=== PATIENT | male | born 1945 | race Caucasian/White ===

== ENCOUNTER 2017-03-30 23:50 | Inpatient (IN) | payer OTHER, MEDICAID ==
[~2017-03-30] VITALS: Ht 182.9 cm; Wt 108.9 kg
[~2017-03-30 23:50] MED LIST: ALDACTONE50 MG PO; AMARYL4 MG PO; ATIVAN1 MG PO; BACTRIM DS TAB1 EACH PO; BENADRYL25 MG PO; CIPRO250 M1 PO; CIPROFLOXACIN750 MG PO; COLACE100 MG PO; FLEXERIL PO; HYDRALAZINE 2525 MG PO; HYDROCODONE-AP1 EAC6 PO; LASIX 20 MG TAB20 MG PO; LASIX 40 MG TAB40 M2 PO; LEVAQUIN 500 M500 MG PO; LEVEMIR SQ; LEVEMIR SUBQ; LISINOPRIL20 MG PO; LOPRESSOR100 M1 PO; LOVASTATIN 20 M20 MG PO; METFORMIN HCL500 MG PO; NEURONTIN 300300 M1 PO; NEURONTIN600 MG PO; NORCO 5-325 TA1 EAC1 PO; NORCO 5-325 TA1 EACH PO; NORVASC10 MG PO; NOVOLOG100 UNIT/1 PO; NOVOLOG100 UNIT/1 SUBQ; NYAMYC15 GM TOP; OMEPRAZOLE40 MG PO; OXECTA5 MG PO; OXYCODONE HCL 55 MG PO; OXYCODONE HCL15 MG PO; PERCOCET 5-3251 EACH PO; PERCOCET PO; TOPROL XL100 MG PO; ULTRAM 50MG TAB50 MG PO; VALIUM5 MG PO; VANCOMYCIN1 GM/250 M IV; VENTOLIN HFA 1818 GM INH; XARELTO15 MG PO; ZOFRAN ODT4 MG PO; ZYVOX600 MG PO
[2017-03-30 23:52] VITALS: BP 158/101
[2017-03-31] MEDS ORDERED: HUMULIN 70100 UNIT/3 SUBQ (00:09)
[2017-03-31 00:23] LABS: ABSOLUTE EOSINOPHILS 0.1 thou/uL (0.0-0.7); ABSOLUTE LYMPHOCYTES 1.3 thou/uL (0.8-5.3); ABSOLUTE MONOCYTES 0.8 thou/uL (0.0-1.2); ABSOLUTE NEUTROPHILS 5.8 thou/uL (1.6-8.1); BASOPHILS 0.3 %; EOSINOPHILS 0.8 %; HEMATOCRIT 31.9 % (42.0-52.0); MCHC 31.5 g/dL (28.0-37.0); MONOCYTES 9.7 %; MPV 8.4 fl. (7.2-11.1); NUCLEATED RBCS 0 /100WBC; PLATELET COUNT* 477 thou/uL (150-400); POLYS 73.2 %; RBC 4.37 mil/uL (4.50-6.00); RDW-CV 19.1 % (10.5-14.5); WBC 7.9 thou/uL (4.0-11.0)
[2017-03-31 00:31] LABS: CREATININE 0.9 mg/dL (0.6-1.3); POTASSIUM 3.8 mmol/L (3.5-5.1)
[2017-03-31 00:35] LABS: ALBUMIN 2.7 g/dL (3.4-5.0); TOTAL BILIRUBIN 0.2 mg/dL (<0.1-1.0); TOTAL PROTEIN 8.1 g/dL (6.4-8.2)
[2017-03-31 01:28] LABS: URINE BILIRUBIN NEGATIVE (Negative); URINE BLOOD NEGATIVE (Negative); URINE CLARITY CLEAR; URINE COLOR YELLOW; URINE GLUCOSE-RANDOM TRACE (Negative); URINE KETONES NEGATIVE (Negative); URINE LEUKOCYTES-REFLEX NEGATIVE (Negative); URINE NITRITE-REFLEX NEGATIVE (Negative); URINE PROTEIN TRACE (Negative); URINE SPECIFIC GRAVITY 1.015 (1.005-1.030); URINE UROBILINOGEN 0.2 E.U./dl (0.2-1.0)
[2017-03-31 02:58] VITALS: BP 165/88
[2017-03-31 03:15] VITALS: BP 141/80
[2017-03-31 08:00] VITALS: BP 147/96
[2017-03-31 13:23] VITALS: BP 150/81
[2017-03-31 15:53] VITALS: BP 143/77
[2017-03-31 22:00] VITALS: BP 140/79
[2017-04-01 07:33] LABS: HEMATOCRIT 30.5 % (42.0-52.0); HEMOGLOBIN 9.6 gm/dL (14.0-18.0); MCH 23.3 pg (26.0-34.0); MCHC 31.6 g/dL (28.0-37.0); MCV 73.5 fL (80.0-100.0); MPV 7.8 fl. (7.2-11.1); RBC 4.14 mil/uL (4.50-6.00); RDW-CV 19.4 % (10.5-14.5); WBC 8.2 thou/uL (4.0-11.0)
[2017-04-01 07:44] LABS: CALCIUM 8.8 mg/dL (8.5-10.1); CREATININE 0.9 mg/dL (0.6-1.3); MAGNESIUM 1.7 mg/dL (1.8-2.4); POTASSIUM 4.2 mmol/L (3.5-5.1)
[2017-04-01 08:15] VITALS: BP 124/55
--- NOTE | 2017-04-01 09:05 | CON ---
[facility] [address] [place] [address] CONSULTATION Name: SANTANA GONZALEZ Room: [address] IN M.R.#: [id number] Admission: 03/31/17 Attend Phys: Ebenezer Alexander, Discharge: Date of : 49 Report #: [id number] THIS REPORT FOR: //name// CC: Tahir Luis DO [facility] physician/PCP Ebenezer Alexander DATE OF SERVICE: 03/31/2017 PULMONARY CONSULTATION PATIENT LOCATION: Room 316. PULMONARY PHYSICIAN: Jordon Chavez M.D. ATTENDING PHYSICIAN Ebenezer Alexander M.D. INDICATION FOR CONSULTATION: Right lower lobe lung mass versus infiltrate. Previous abnormal biopsy at [facility]. HISTORY OF PRESENT ILLNESS: The patient is a 71-year-old male, lifelong nonsmoker, who presented to the Emergency Room here complaining of shortness of breath. He had right-sided abdominal pain. He has been tolerating the diet, but he states his last BM was 2 days ago. There may have been some mild constipation. The patient initially told me he thought he had mesothelioma diagnosed on his laparoscopic cholecystectomy by Dr. Luis. It appears that his gallbladder was normal and okay. I do not have the path reports. Our group did see him at [facility] for a couple of days again because of his history and he complained of increasing abdominal pain while he was at [facility]. I think that he was discharged home in the first week in March. I do not have his records in front of me here yet. His abdomen is soft at this time. He has good bowel sounds and is passing flatus. He is eating a diet. He was exposed to what he thinks was insulation when he worked at the [employer]. 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 His weight has been stable. No hemoptysis. Mostly abdominal pain, right upper quadrant has been his diagnosis and major complaint. PAST MEDICAL HISTORY: He has a history of hypertension and diabetes. Also, hyperlipidemia and nul-tquvrdb-uhzkhfjym diabetes mellitus, type 2. He does have past cancer history of melanoma and prostate cancer. PAST SURGICAL HISTORY: Includes cholecystectomy. OUTPATIENT MEDICATIONS: Again were multiple, including Lasix 20 mg daily, metoprolol 100 mg daily, glimepiride 4 mg once daily, lisinopril 20 mg daily, metformin 1000 mg b.i.d., lovastatin 20 mg daily, gabapentin [address] [place] [id number] CONSULTATION Name: SANTANA GONZALEZ Room: [address]#: [id number] Admission: 03/31/17 Attend Phys: Ebenezer Alexander, Discharge: Date of : 49 Report #: [id number] sliding scale insulin. FAMILY HISTORY: Noncontributory. SOCIAL HISTORY: The patient lives on his own. 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 He was never in the service and he had some insulation and did some works around pipes while he was at the [employer]. He did this in the mid 60s up through the 90s, I believe. ALLERGIES: HE HAS ALLERGIES OR INTOLERANCE TO CORTICOSTEROIDS, WHICH GIVES HIM NAUSEA; PENICILLINS AND CODEINE. REVIEW OF SYSTEMS: A 14-point review of systems otherwise was negative. There is no weight loss, chest pain or hemoptysis. PHYSICAL EXAMINATION: GENERAL: Today, he is a pleasant 71-year-old male who is in no acute distress. His major complaint is of right upper quadrant pain, but states he is comfortable at this time. He is lying in the bed quietly. VITAL SIGNS: His blood pressure is 143/77, his heart rate is 72, respirations 16, temperature is 36.4 degrees and room air sats 95%. He is 6 feet 1 inches tall, weight 109 kilograms or 230 pounds and BMI is 32. HEENT: Unremarkable. Teeth are in fair repair. NECK: Supple without nodes. CHEST: Shows a few rhonchi in the right lower lobe. Left chest is clear. CARDIOVASCULAR: Regular rate and rhythm, without murmur, gallop or rub. Heart rate 72. ABDOMEN: Quite soft. There are 4 ports noted, which are well healed. It is flat, it is soft. He has good bowel sounds, without any rebound tenderness. EXTREMITIES: Without cyanosis, clubbing or edema. NEUROLOGIC: Grossly intact. LABORATORY DATA: Hemoglobin is 10, white count 7900 and platelets are 477,000. Normal differential. Sodium is 136, potassium is 3.8, BUN is 13, creatinine 0.9 and glucose 214. Alkaline phosphatase is 58 and albumin is 2.7. Chest x-ray shows a 3 x 5 cm right lower lobe infiltrate versus mass. When they imaged this on his CT of the abdomen, the lower cuts, I think it is more than infiltrate; it is lateral. There may be some pleural thickening and may be adherent to the right side of his heart. There is some pleural thickening on the right, but I do not see calcified pleural thickening at least on the lower cuts of the CT abdomen; nothing on the left side. Again, this may be amenable to CT biopsy, but let us wait for the CT of the chest, which is ordered for Saturday. I do not have the records from [facility] either at this time. IMPRESSION: [facility] [address] [place] [address] CONSULTATION Name: SANTANA GONZALEZ Room: [facility]- ADM IN M.R.#: [id number] Admission: 03/31/17 Attend Phys: Ebenezer Alexander, Discharge: Date of : 49 Report #: [id number] 1. Possible right lung mass versus infiltrate, previous laparoscopic cholecystectomy at [facility]. 2. Abdominal pain. PLAN: Await CT chest and see what the infiltrate or mass looks like and see if we can do a CT-guided needle biopsy. Metastatic melanoma may be another consideration. Wait and see what the pathology and results show from [facility]. I am going to talk with Dr. Luis about that also. In the meantime, pain relief and symptomatic relief for his constipation. He does not have any COPD, so hopefully his pulmonary status will remain stable from that standpoint. Thanks again for allowing us to participate in this man's care. We will follow up along with you while he is in the hospital and await the old records from [facility]. <ELECTRONICALLY SIGNED> By: Sharee Henderson MD 04/01/17 0905 1849 0006Ajaycee Chavez MD /nt
[2017-04-01 16:25] VITALS: BP 146/92
[2017-04-01 20:20] VITALS: BP 135/87
[2017-04-02 08:15] VITALS: BP 150/89
[2017-04-02 16:00] VITALS: BP 159/88
[2017-04-03 07:35] VITALS: BP 149/90
[2017-04-03 16:30] VITALS: BP 137/81
[2017-04-03 20:30] VITALS: BP 125/87
[2017-04-04 08:00] VITALS: BP 137/86
[2017-04-04 16:00] VITALS: BP 103/70
[2017-04-04 20:00] VITALS: BP 131/76
[2017-04-05 07:35] VITALS: BP 108/73
[2017-04-05] MEDS ORDERED: OXYCODONE HCL10 MG PO (11:28)
[2017-04-05] MEDS ORDERED: MS CONTIN30 MG PO (11:28)
[2017-04-05 11:56] VITALS: BP 108/73
== END 2017-04-05 16:00 | disposition other institution (70) | DRG 389 ==
LOC: M.ERS 23:50 → M.TBA-ER 03-31 02:16 → M.3W 03-31 02:16
PROVIDERS: Personal Emergency Response Attendant; ADMIT Family Medicine
DX: K56.7 Ileus, unspecified (principal); R71.0 Precipitous drop in hematocrit; E11.9 Type 2 diabetes mellitus without complications; I10 Essential (primary) hypertension; E88.09 Other disorders of plasma-protein metabolism, not elsewhere classified; D50.9 Iron deficiency anemia, unspecified; E66.9 Obesity, unspecified; Z89.431 Acquired absence of right foot; Z85.47 Personal history of malignant neoplasm of testis; Z85.820 Personal history of malignant melanoma of skin; Z79.84 Long term (current) use of oral hypoglycemic drugs; Z79.4 Long term (current) use of insulin; Z88.5 Allergy status to narcotic agent; Z88.8 Allergy status to other drugs, medicaments and biological substances; Z88.0 Allergy status to penicillin; Z87.891 Personal history of nicotine dependence; Z90.49 Acquired absence of other specified parts of digestive tract; Z68.32 Body mass index [BMI] 32.0-32.9, adult

== ENCOUNTER 2017-08-23 11:39 | Inpatient (IN) | payer OTHER ==
[~2017-08-23] VITALS: Ht 185.4 cm; Wt 95.7 kg
[~2017-08-23 11:39] MED LIST changes: +HUMULIN 70100 UNIT/3 SUBQ; +MS CONTIN30 MG PO; +OXYCODONE HCL10 MG PO
[2017-08-23 11:42] VITALS: BP 148/98
[2017-08-23 12:18] LABS: ABSOLUTE EOSINOPHILS 0.1 thou/uL (0.0-0.7); ABSOLUTE LYMPHOCYTES 0.8 thou/uL (0.8-5.3); ABSOLUTE MONOCYTES 0.5 thou/uL (0.0-1.2); ABSOLUTE NEUTROPHILS 4.6 thou/uL (1.6-8.1); BASOPHILS 0.8 %; EOSINOPHILS 2.1 %; HEMATOCRIT 28.7 % (42.0-52.0); HEMOGLOBIN 9.3 gm/dL (14.0-18.0); LYMPHOCYTES 13.3 %; MCH 25.5 pg (26.0-34.0); MCHC 32.2 g/dL (28.0-37.0); MCV 79.2 fL (80.0-100.0); MONOCYTES 7.9 %; MPV 7.8 fl. (7.2-11.1); NUCLEATED RBCS 0 /100WBC; PLATELET COUNT* 352 thou/uL (150-400); POLYS 75.9 %; RBC 3.62 mil/uL (4.50-6.00); RDW-CV 18.8 % (10.5-14.5); WBC 6.1 thou/uL (4.0-11.0)
[2017-08-23 12:27] LABS: ANION GAP 9 mmol/L (7-16); BUN 17 mg/dL (7-18); CALCIUM 8.6 mg/dL (8.5-10.1); CHLORIDE 96 mmol/L (98-107); CO2 25 mmol/L (21-32); CREATININE 0.9 mg/dL (0.6-1.3); GLUCOSE 348 mg/dL (70-99); INR 1.1; POTASSIUM 3.5 mmol/L (3.5-5.1); PROTIME 10.5 Seconds (9.20-11.50); SODIUM 130 mmol/L (136-145)
[2017-08-23 12:37] LABS: ALKALINE PHOSPHATASE 98 U/L (46-116); LIPASE 99 U/L (73-393); MAGNESIUM 1.3 mg/dL (1.8-2.4); NT-PRO BRAIN NAT PEPTIDE 228 pg/mL (<300); SGOT 14 U/L (15-37); SGPT 14 U/L (30-65); TOTAL BILIRUBIN 0.2 mg/dL (<0.1-1.0); TOTAL PROTEIN 7.9 g/dL (6.4-8.2); TROPONIN-I LEVEL <0.06 ng/mL (<0.06)
--- NOTE | 2017-08-23 12:40 | NUR ---
ASSUMMED CARE OF PATIENT COMPLAINS OF CP X 2 HOURS THAT RADIATES INTO HIS BACK +DYPSNEA DENIES N/V DENIES DIAPHORESIS STATES PAIN DOES RADIATE INTO HIS LEFT ARM DENIES FEVER COUGH OR FLU LIKE SYMPTOMS. PATIENT WAS GIVEN MORPHINE BUT STATES DILAUDID WORKS MUCH BETTER FOR HIS DISCOMFORT.
--- NOTE | 2017-08-23 13:20 | NUR ---
PATIENT RETURNED FROM RADIOLOGY
[2017-08-23 16:15] VITALS: BP 147/89
--- NOTE | 2017-08-23 19:01 | NUR ---
RECEIVED PT FROM ER. PT C/O OF CHEST PAIN 01/22 AND REPORTS PAIN HAS BEEN OCCURING FOR 3 WEEKS. AFTER REPORTING CHEST PAIN, PT ASKING TO EAT MEAL AND ASKING HOW TO WORK TV. ADMISSION ASSESSMENT COMPLETE. PT MISSING ALL TOES ON RIGHT FOOT. PT AMBULATES WITH CANE. PT DENIES FALLS IN PAST 3 MONTHS. PT LIVES HOME ALONE. AWARE OF CHEST PAIN. RECEIVED ORDER FOR PAIN MEDICAITON. NO EKG NEEDED AT THIS TIME.
--- NOTE | 2017-08-23 19:44 | NUR ---
MAG 1.3 DR PAGED AND ASKED FOR ELECTROLYTE PROTOCOL. BLOOD SUGAR [address] TO RESUME HOME INSULIN. AWAITING ORDERS.
[2017-08-23 20:00] VITALS: BP 139/92
[2017-08-24] VITALS (7 sets, daily range): BP systolic 113–163; BP diastolic 87–101
--- NOTE | 2017-08-24 05:27 | NUR ---
ASSUMED PT CARE AT 19:15, REPORT RECEIVED FORM NURSE. PT IS ALERT AWAKE ORIENTED X 4. VITALS SIGNS WITHIN NORMAL LIMIT. SINUS TACHY ON THE MONITOR.LUNG SOUNDS ARE CLEAR. STAYED IN BED MOST OF THE NIGHT. ASSESSMENT PERFORMED REFER TO CHART. PT COMPLAIN OF PAIN LEVEL OF 10 INTHE LOWER MIDDLE BACK. SKINI IS INTACT. LEFT CHEST PORT IS PATENT. HYDROMORPHONE ADMINISTERED SCHEDULED. PT THEN GETS ANOTHER DOSE OF HYDROMORPHONE 4 HOURS AFTER AND STATED THAT PAIN GOT DOWN TO LEVEL 6. BLOOD SUGAR IS 466 AT 2100. INSULIN WAS ADMINISTERED ORDERED. PT ASKED FOR SNACK MULTIPLE TIMES DURINGHTE SHIFT. BLOOD SUGAR RECHECKED BEFORE SNACK ADMINISTRATION. LEVEL OF 117 THE LAST TIME. AND SNACK WAS GIVEN. PT TOLORATED WELL. NEW ORDER FOR HIGH DOSE SLIDING SCALE ORDERED AND ENTERED ON COMPUTER. PT URINATES IN THE URINAL PLACED AT BEDSIDE. LABS DRAW FROM LEFT CHEST PORT.
--- NOTE | 2017-08-24 13:06 | EKG ---
[place] [address] ELECTROCARDIOGRAM REPORT Name: SANTANA GONZALEZ Room: [address] IN .R.#: [id number] Admission: 08/23/17 Attend Phys: Parth Goodwin Discharge: Date of : 49 Report #: [id number] THIS REPORT FOR: //name// [facility] ED Test Date: 2017-08-23 Test Time: 12:05:40 Pat Name: SANTANA GONZALEZ Department: Room: Gender: M Armature Straightener: [facility] : 1945 Requested By: Yves Multani Order Number: [id number] MD: Bladimir Santos Measurements Intervals [place] Rate: 99 P: 19 MT: 201 QRS: -60 QRSD: 113 T: 56 QT: 364 QTc: 468 Interpretive Statements Sinus rhythm Left anterior fascicular block Abnormal R-wave progression, early transition ST elevation suggests acute pericarditis Compared to ECG 06/15/2016 15:47:08 Left anterior fascicular block now present Atrial premature complex(es) no longer present First degree AV block no longer present Left ventricular hypertrophy no longer present ST (T wave) deviation still present Electronically Signed On 08-24-2017 13:06:30 CDT by Bladimir Santos [email or web address] <ELECTRONICALLY SIGNED> By: Bladimir Santos MD, [facility] 08/24/17 1306 1205 1205 Bladimir Santos MD, [facility] /EPI
--- NOTE | 2017-08-24 13:06 | EKG ---
[place] [address] ELECTROCARDIOGRAM REPORT Name: SANTANA GONZALEZ Room: [address] IN .R.#: [id number] Admission: 08/23/17 Attend Phys: Parth Goodwin Discharge: Date of : 49 Report #: [id number] THIS REPORT FOR: //name// [facility] ED Test Date: 2017-08-23 Test Time: 11:43:27 Pat Name: SANTANA GONZALEZ Department: Room: Gender: M Bilingual Teacher Assistant: [facility] : 1945 Requested By: Yves Multani Order Number: [id number] MD: Bladimir Santos Measurements Intervals [place] Rate: 108 P: 9 CO: 198 QRS: -56 QRSD: 111 T: 74 QT: 343 QTc: 460 Interpretive Statements Sinus tachycardia Left anterior fascicular block Abnormal R-wave progression, early transition ST elevation, consider inferior injury Compared to ECG 06/15/2016 15:47:08 Left anterior fascicular block now present Myocardial infarct finding now present Sinus rhythm no longer present Atrial premature complex(es) no longer present First degree AV block no longer present Left ventricular hypertrophy no longer present ST (T wave) deviation still present Electronically Signed On 08-24-2017 13:06:25 CDT by Bladimir Santos [email or web address] <ELECTRONICALLY SIGNED> By: Bladimir Santos MD, [facility] 08/24/17 1306 1143 1143 Bladimir Santos MD, [facility] /EPI
--- NOTE | 2017-08-24 14:02 | NUR ---
Pt is A&O. States that he resides at home alone. Pt has a hx of residing at [facility], but stated that he stayed a few months and is now back living at home. Pt states being independent with ADLs. Pt has a walke and cane that he can use, Pt is wanting a wc. PT ordered to eval for wc. Supportive family and friends that assist as needed. Hx of [facility]. Following for dc needs.
--- NOTE | 2017-08-24 14:29 | NUR ---
PT CALLED OUT MULTIPLE TIMES IN THE LAST 30 MINUTES REGARDING PAIN, PT NOT ABLE TO HAVE PRN DILAUDID UNTIL 1506 PER CURRENT ORDER. SPOKE WITH DR CHILDS, CONSULTS FOR PULM AND HEMO ORDERED. PT STILL CALLING OUT IN PAIN. SPOKE WITH DR CHILDS AGAIN. ORDER TO CHANGE DILAUDID TO Q2 PRN. DILAUDID GIVEN
--- NOTE | 2017-08-24 15:07 | NUR ---
Juma from [facility] coming to meet with Pt today, per Pt's request. Spoke with , order for hospice eval and tx obtained.
[2017-08-24 15:23] LABS: CALCIUM 8.1 mg/dL (8.5-10.1); CREATININE 0.8 mg/dL (0.6-1.3); MAGNESIUM 1.8 mg/dL (1.8-2.4); POTASSIUM 4.2 mmol/L (3.5-5.1)
--- NOTE | 2017-08-24 15:51 | NUR ---
PT STATES HE HAS TAKE CELEBREX BEFORE AND IT "DOESN'T DO SHIT FOR HIM AND IT MADE ME SICK." DISCUSSED WITH PT ABOUT WHY PHYSICIAN ORDERED MEDICATION AND THE COMBINATION OF PAIN MEDICATION THERAPIES. PT AGREES TO TAKE TRY IT. CELEBREX ADMINISTERED.
--- NOTE | 2017-08-24 17:51 | NUR ---
HOSPICE REFERRAL PERSON CAME TO SPEAK WITH PT. PT DENIED TO TALK TO HER. WHEN ASKED WHY HE REFUSED TO TALK TO HOSPICE, HE TOLD THIS RN, "I DON'T FEEL GOOD." PT STATES HE WILL CALL THEM TOMORROW.
--- NOTE | 2017-08-25 00:42 | NUR ---
ASSUMED PT CARE AT 19:15, REPORT RECEIVED FROM NURSE. PT IS ALERT, AWAKE, ORIENTED X 4. VITAL SIGNS ARE WITHIN NORMAL LIMIT. ASSESSMENT PERFORMED REFER TO CHARTING. PT COMPLAINS OF PAIN LEVEL OF 10 IN THE LOWER BACK AREA. PAIN TREATED WITH DILAUDID AT 20:50. PT REFUSES ANY BATH OR SHOWER, SAYS HE WILL TAKE A SHOWER TOMORROW. SINUS TACHY ON THE MONITOR. HEART RATE IS MAINTAINED IN THE LOW 100S. O2 SATURATION IS 94 ON RA. DRESSING OF THE RIGHT CHEST WAS CHANGED. VANCO IS RUNNING AT MIDNIGHT ORDERED. ANOTHER ODESE OF DILAUDID WAS ADMINISTERED PT COMPLAINS OF PAIN AGAIN. CURRENTLY IN BED LAYING DOWN IN BED. WILL CONTINUE TO MONITOR
[2017-08-25 03:42] VITALS: BP 140/78
[2017-08-25 04:28] LABS: HEMATOCRIT 27.7 % (42.0-52.0); HEMOGLOBIN 9.1 gm/dL (14.0-18.0); MCH 26.1 pg (26.0-34.0); MCHC 32.8 g/dL (28.0-37.0); MCV 79.5 fL (80.0-100.0); MPV 7.9 fl. (7.2-11.1); NUCLEATED RBCS 0 /100WBC; PLATELET COUNT* 294 thou/uL (150-400); RBC 3.48 mil/uL (4.50-6.00); RDW-CV 18.4 % (10.5-14.5)
[2017-08-25 04:43] LABS: ALBUMIN 1.8 g/dL (3.4-5.0); CALCIUM 8.3 mg/dL (8.5-10.1); CREATININE 0.8 mg/dL (0.6-1.3); MAGNESIUM 1.4 mg/dL (1.8-2.4); POTASSIUM 3.9 mmol/L (3.5-5.1); TOTAL BILIRUBIN 0.3 mg/dL (<0.1-1.0); TOTAL PROTEIN 7.4 g/dL (6.4-8.2)
[2017-08-25 05:32] LABS: ABSOLUTE EOSINOPHILS 0.1 thou/uL (0.0-0.7); ABSOLUTE LYMPHOCYTES 0.7 thou/uL (0.8-5.3); ABSOLUTE MONOCYTES 0.4 thou/uL (0.0-1.2); ABSOLUTE NEUTROPHILS 8.8 thou/uL (1.6-8.1); ANISOCYTOSIS 1+; PLATELET ESTIMATE ADEQUATE; TOXIC GRANULATION 1+
[2017-08-25 13:16] VITALS: BP 138/95
[2017-08-25 17:28] VITALS: BP 141/82
[2017-08-25 18:50] VITALS: BP 141/82
[2017-08-25] MEDS ORDERED: OXYCODONE HCL 55 MG PO (18:55)
[2017-08-25] MEDS ORDERED: CEFDINIR300 MG PO (18:55)
--- NOTE | 2017-08-25 20:02 | NUR ---
DISCHARGE MEDS, EDUCATION MATERIALS, DISCHARGE INSTRUCTIONS AND RXS GIVEN TO PT. PT VERBALIZED UNDERSTANDING, NO QUESTIONS AT THIS TIME. CAB PASS PROVIDED FOR PT AND PT TO BE TAKEN OUT VIA WHEELCHAIR BY CYLINDER PRESS OPERATOR HELPER.
--- NOTE | 2017-08-25 23:50 | NUR ---
PT WATING FOR CAB. REFUSED BEDTIME MEDS BUT REQUESTED PAIN MEDICATION. PORT WAS NOT ACCESSED. HOUSE KARIME ORTEGA CALLED DR CHILDS FOR PAIN MED ORDER. MORPHINE SULFATE EXTENDED RELEASE GIVEN ONE TIME. PT THEN TAKEN TO ER WAITING ROOM TO WAIT FOR CAB. BELONGINGS WITH PT.
--- NOTE | 2017-08-26 00:43 | NUR ---
STILL WAITING ON CAB. PT TAKEN BACK TO ROOM TO REST IN BED UNTIL CAB COMES.
--- NOTE | 2017-08-26 02:30 | NUR ---
PT LEFT WITH UBER RIDE.
--- NOTE | 2017-08-26 12:12 | NUR ---
ORDERS RECEIVED, HOWEVER P.T. DC'ED MC PRIOR TO P.T. EVALUATION. CARLY RYAN, MPT
== END 2017-08-25 23:55 | disposition hospice, home (50) | DRG 180 ==
LOC: M.ERS 11:39 → M.TBA-ER 13:18 → M.2W 16:36
PROVIDERS: Emergency Medicine Emergency Medical Services; Internal Medicine Critical Care Medicine; ADMIT Internal Medicine
DX: C45.0 Mesothelioma of pleura (principal); E43 Unspecified severe protein-calorie malnutrition; J18.9 Pneumonia, unspecified organism; I10 Essential (primary) hypertension; E11.9 Type 2 diabetes mellitus without complications; Z85.47 Personal history of malignant neoplasm of testis; Z85.118 Personal history of other malignant neoplasm of bronchus and lung; Z90.49 Acquired absence of other specified parts of digestive tract; Z98.1 Arthrodesis status; Z79.4 Long term (current) use of insulin; Z79.899 Other long term (current) drug therapy; Z88.0 Allergy status to penicillin; Z88.5 Allergy status to narcotic agent; Z88.8 Allergy status to other drugs, medicaments and biological substances; Z82.49 Family history of ischemic heart disease and other diseases of the circulatory system

== ENCOUNTER 2017-08-27 14:11 | Inpatient (IN) | payer OTHER ==
[~2017-08-27] VITALS: Ht 185.4 cm; Wt 99.2 kg
[~2017-08-27 14:11] MED LIST changes: +CEFDINIR300 MG PO
[2017-08-27] MEDS ORDERED: NORCO 5-325 TA1 EACH PO (14:21)
[2017-08-27] MEDS ORDERED: GLUCOPHAGE1000 MG PO (14:21)
--- NOTE | 2017-08-27 15:09 | NUR ---
PT CONFUSED AND COMBATIVE. PT REFUSING ALL TESTS.
[2017-08-27 15:50] LABS: HEMATOCRIT 29.6 % (42.0-52.0); HEMOGLOBIN 9.5 gm/dL (14.0-18.0); MCH 25.4 pg (26.0-34.0); MCV 79.5 fL (80.0-100.0); MPV 7.9 fl. (7.2-11.1); NUCLEATED RBCS 0 /100WBC; PLATELET COUNT* 322 thou/uL (150-400); RBC 3.72 mil/uL (4.50-6.00); RDW-CV 18.3 % (10.5-14.5); WBC 4.8 thou/uL (4.0-11.0)
[2017-08-27 15:55] LABS: APTT 34.5 Seconds (25.0-31.3); INR 1.1; PROTIME 10.6 Seconds (9.20-11.50)
[2017-08-27 15:56] LABS: ANION GAP 7 mmol/L (7-16); BUN 22 mg/dL (7-18); CALCIUM 8.9 mg/dL (8.5-10.1); CHLORIDE 96 mmol/L (98-107); CO2 27 mmol/L (21-32); CREATININE 1.1 mg/dL (0.6-1.3); GLUCOSE 98 mg/dL (70-99); POTASSIUM 3.1 mmol/L (3.5-5.1); SODIUM 130 mmol/L (136-145)
[2017-08-27 16:13] LABS: ALKALINE PHOSPHATASE 101 U/L (46-116); CK-MB MASS 2.9 ng/mL (<0.5-3.6); NT-PRO BRAIN NAT PEPTIDE 242 pg/mL (<300); SGOT 23 U/L (15-37); SGPT 13 U/L (30-65); TOTAL BILIRUBIN 0.2 mg/dL (<0.1-1.0); TOTAL PROTEIN 7.8 g/dL (6.4-8.2); TROPONIN-I LEVEL <0.06 ng/mL (<0.06)
[2017-08-27 16:33] LABS: ABSOLUTE EOSINOPHILS 0.1 thou/uL (0.0-0.7); ABSOLUTE LYMPHOCYTES 0.6 thou/uL (0.8-5.3); ABSOLUTE MONOCYTES 0.5 thou/uL (0.0-1.2); ABSOLUTE NEUTROPHILS 3.6 thou/uL (1.6-8.1); ATYPICAL LYMPHS 7 %
[2017-08-27 16:34] LABS: ANISOCYTOSIS 1+; MICROCYTES 1+; PLATELET ESTIMATE ADEQUATE
[2017-08-27 17:08] LABS: BE -2.7 mmol/L (-2 to +3); HCO3 22.7 mmol/L (22.0-26.0); PCO2 41.8 mmHg (35.0-45.0); PO2 147.2 mmHg (75.0-100.0); pH 7.352 (7.340-7.450)
--- NOTE | 2017-08-27 17:09 | NUR ---
CORONA STEPHENS APPLIED TO PT
[2017-08-27 17:38] VITALS: BP 97/61
[2017-08-27 17:41] LABS: URINE BILIRUBIN NEGATIVE (Negative); URINE BLOOD NEGATIVE (Negative); URINE CLARITY CLEAR; URINE COLOR YELLOW; URINE GLUCOSE-RANDOM NEGATIVE (Negative); URINE KETONES NEGATIVE (Negative); URINE LEUKOCYTES-REFLEX 1+ (Negative); URINE NITRITE-REFLEX NEGATIVE (Negative); URINE PROTEIN NEGATIVE (Negative); URINE SPECIFIC GRAVITY 1.015 (1.005-1.030); URINE UROBILINOGEN 0.2 E.U./dl (0.2-1.0)
[2017-08-27 17:51] LABS: HYALINE CASTS 0-3 Few /LPF (None Seen); SQUAMOUS 0-3 Few /LPF (0-3)
[2017-08-27 17:52] LABS: CRYSTALS None Seen /LPF (None Seen); URINE RBC 0-2 Rare /HPF (0-2); URINE WBC-REFLEX 0-5 Rare /HPF (0-5); YEAST-REFLEX Present (None Seen)
[2017-08-27 18:00] VITALS: BP 127/77
[2017-08-27 19:00] VITALS: BP 109/68
--- NOTE | 2017-08-27 19:46 | NUR ---
RECEIVED PT FROM ER. PT COOL. 92.3 DEGREES TEMP OBTAINED RECTALLY. PT LETHARGIC, RESPONSIVE TO PAIN. VSS. ADMISSION ASSESSMENT COMPLETE. UNABLE TO OBTAIN WEIGHT BED NOT FUNCTIONING. BEAR HUGGAR ON. CASTILLO DRAINING DEPENDANTLY. POTASSIUM 3.1. PAGED FOR ELECTROLYTE PROTOCOL. AWAITING ORDERS.
[2017-08-27 20:00] VITALS: BP 114/72
[2017-08-27 22:00] VITALS: BP 130/84
[2017-08-27 23:00] VITALS: BP 133/78
[2017-08-28] VITALS (10 sets, daily range): BP systolic 101–146; BP diastolic 60–88
--- NOTE | 2017-08-28 00:45 | NUR ---
PT ALERT TO PERSON, PLACE AND MONTH. PT UNSURE OF DAY OR DATE. PT STATES HE TOOK ABOUT 4 PAIN PILLS SINCE HE HAS BE DISCHARGED FROM THE HOSPITAL PT STATES HE DID NOT TAKE HIS PILLS TO END HIS LIFE. PT SAID " NO WAY, NO HOW ". PT TAKING PO FLUIDS WITHOUT DIFFICULTY. CORE TEMP AT THIS TIME.99.9. REMOVED BEAR HUGGER AND TURNED ON FAN PER PT'S REQUEST.
[2017-08-28 03:45] LABS: CALCIUM 8.1 mg/dL (8.5-10.1); CREATININE 0.8 mg/dL (0.6-1.3); POTASSIUM 3.9 mmol/L (3.5-5.1)
--- NOTE | 2017-08-28 06:26 | NUR ---
pt progressing toward goals during shift. pt completely alert and oriented x4. pt denies taking all of his pain pills at home. pt pleasant and cooperative, tolerating po fluids. pt ate box lunch this am. vital signs and blood pressure within normal limits.
--- NOTE | 2017-08-28 08:36 | NUR ---
Pt was discharged on Friday 08/25, and was admitted to [facility] on 08/26.
--- NOTE | 2017-08-28 10:40 | NUR ---
PT KNOWN TO CASE MGT FROM PREVIOUS ADMISSIONS. PT WAS DISCHARGED TO HOME 08/25, PT HAS BEEN STAYING AT A [facility]. PT SIGNED UP WITH [facility] AND [facility] AFTER DISCHARGE. HOSPICE NURSE FOUND PT UNRESPONSIVE AT HOME, MAY HAVE TAKE A WEEK'S WORTH OF HYDROCODONE IN A DAY. PT SLEEPING NOW BUT HAS BEEN RESPONSIVE. CASE MGT WILL ASSESS AT LATER TIME.
--- NOTE | 2017-08-28 11:35 | EKG ---
[place] [address] ELECTROCARDIOGRAM REPORT Name: SANTANA GONZALEZ Room: 003-P ADM IN .R.#: [id number] Admission: 08/27/17 Attend Phys: Trip Barajas Discharge: Date of : 49 Report #: [id number] THIS REPORT FOR: //name// [facility] ED Test Date: 2017-08-27 Test Time: 15:41:59 Pat Name: SANTANA GONZALEZ Department: Room: Gender: M Manager Beverage: JOHN : 1945 Requested By: Vishal Agudelo Order Number: [id number] MD: Ramses Colmenares Measurements Intervals [place] Rate: 79 P: 26 WI: 224 QRS: -42 QRSD: 125 T: 84 QT: 443 QTc: 508 Interpretive Statements Sinus rhythm Prolonged WI interval Nonspecific IVCD with LAD Baseline wander in lead(s) II,III,aVR,aVF Compared to ECG 08/23/2017 12:05:40 ST (T wave) deviation still present Electronically Signed On 08-28-2017 11:34:59 CDT by Ramses Colmenares [email or web address] <ELECTRONICALLY SIGNED> By: Ramses Colmenares MD, [facility] 08/28/17 1134 1541 1541 Ramses Colmenares MD, [facility] /EPI
--- NOTE | 2017-08-28 16:24 | NUR ---
report called to alexa on .
--- NOTE | 2017-08-28 16:29 | NUR ---
PT'S CASTILLO TEMP PROBE REVEALS 100.4C. AUXILLARY AND ORAL TEMP REVEAL 98.[address] BIGGS TO INQUIRE ABOUT TYLENOL PO. NO RETURN CALL OF YET.
--- NOTE | 2017-08-28 17:04 | NUR ---
PT TRANSFERD TO ROOM 214 AT 1645.
--- NOTE | 2017-08-28 17:27 | NUR ---
RECIEVED REPORT FROM YOANA RN IN ICU OF EXPECTED TRANSFER @ 1615- PT ARRIVED TO UNIT VIA W/C AT 1645- PT TRANSFERED TO BED EXT ASSIST X2- TRANSPORTATION ASSISTANT PLACED ORDERED, TRACING SR/ST- PT A&O X4- CONTINENT OF BOWEL, REPORTED TO HAVE HAD MODERATE SIZE BM PRIOR TO TRANSFER- CASTILLO IN PLACE D/D CLAR RICHY URINE- LCTA, DIMINISED IN BASES- RESP EVEN AND UN-LABORED- VS 98.5 20 139/88 101 92% ON RA-AABDOMEN FIRM/ROUND/NON-TENDER, BS X4 QUADS- TRACE EDEAM NOTED TO BLE- PULSES 2/2- RIGHT CHEST PORT NOTED AND ACCESSED, NO S/S INFECTION NOTED- RIGHT AC IV NOTED AND SL- NO FLUIDS RUNNING AT TIME OF TRANSFER, REPORTED TO HAVE COMPLETED IN ICU, NEXT BACK NOT DUE AT THIS TIME- BS 145 WITH SCHEDULED INSULIN GIVEN PRESCIBED- PT REPORTS PAIN 10/10 GENERALIZED R/T CANCER UPON TRANSFER- PRN HYDROCODONE GIVEN AT 1711- CALL LIGHT AND PERSONAL BELONGINGS WITH IN REACH- HOURLY ROUNDS IN PLACE R/T SAFETY/NEEDS- ALL NEEDS MET AT THIS TIME-WCTM
[2017-08-29] VITALS: BP 140/79
--- NOTE | 2017-08-29 00:34 | NUR ---
PATIENT RESTING IN BED. REQUESTED PAIN MEDS. GIVEN ORDERED. SLEEPING NOW. UP TO BATHROOM WITH SOME INCONT. PRIOR. CONT. TO MONITOR. BED IN LOW POSITION, CALL LIGHT IN REACH, BED ALARM ON.
[2017-08-29 04:00] VITALS: BP 146/93
--- NOTE | 2017-08-29 06:42 | NUR ---
PATIENT CONT IVF WITHOUT DIFFICULTIES. PRN PAIN MEDS ORDERED. DENIES ANY FURTHER COMPLAINTS AT THIS TIME. NO SIGN OF DISTRESS. CONT. WITH PLAN OF CARE AT THIS TIME.
[2017-08-29 08:30] VITALS: BP 156/93
[2017-08-29] MEDS ORDERED: GLUCOPHAGE XR500 MG PO (09:45)
[2017-08-29] MEDS ORDERED: LIDOPATCH1 EACH TOP (09:45)
--- NOTE | 2017-08-29 10:00 | NUR ---
ASSUMED PATIENT CARE AFTER REPORT. PT IS ALERT AND ORIENTED X4. VUTAL SIGNS TAKEN AND RECORDED. PHYSICAL ASSESSMENT COMPLETED AND CHARTED. PT COMPLAINED OF SEVERE RIGHT UPPER ABDOMINAL PAIN THIS AM. CALLS FREQUENTLY. DR SYKES NOTIFIED AND WAS SEEN. LIDOCAINE PATCH WAS PESCRIBED AND GIVEN.DISCHARGE OER WAS MADE AND HOSPICE EVALUATION IN PLACED.
--- NOTE | 2017-08-29 10:07 | NUR ---
CM updated Pt that [facility] will not accept him back. Spoke with Katerin from [facility], she will come out to [facility] this morning. CM attempting to reach Pt's sister to see if she would be willing to assist with medication administration for Pt, sister's is not set up. Pt states that his sister will provide his dc transportation. Faxed referral to [facility]
[2017-08-29 12:21] VITALS: BP 156/93
[2017-08-29] MEDS ORDERED: IBUPROFEN 800800 M1 PO (12:38)
[2017-08-29] MEDS ORDERED: OXYCODONE HCL 55 MG PO (12:46)
--- NOTE | 2017-08-29 13:57 | NUR ---
DISCHARGE ORDERS RECEIVED. HOSPICE EVAL IN PLACE- PT NOT WILLING TO WAIT FOR NURSE TO COME AND EVAL AND STATES HE IS GOING TO [place] IN 5 DAYS AND WILL FOLLOW UP WITH HOSPICE THERE. PT TO DISCHARE HOME AND SISTER TO MANAGE PAIN PILLS. DISCHARGE INSTRUCTIONS, CARE NOTES, SCRIPTS AND FOLLOW UP APPTS GIVEN TO PT. PT COMMUNICATES UNDERSTANDING OF DISCHARGE TEACHING. VISOR INSTALLER REMOVED. BRANDIE CATH DEACCESSED WITH HEPARIN SUCCESSFULLY AND DRESSING PLACED. PT DISCHARGED WITH ALL BELONGINGS AND PAPERWORK VIA WHEELCHAIR WITH NURSING STAFF TO SPOUSE OWN PERSONAL VEHICLE.
== END 2017-08-29 14:03 | disposition home or self-care (01) | DRG 871 ==
LOC: M.ERS 14:11 → M.TBA-ER 16:37 → M.ICU 16:37 → M.2W 08-28 16:51
PROVIDERS: Family Medicine; ADMIT Internal Medicine
DX: A41.9 Sepsis, unspecified organism (principal); J69.0 Pneumonitis due to inhalation of food and vomit; G92 Toxic encephalopathy; F11.20 Opioid dependence, uncomplicated; T50.991A Poisoning by other drugs, medicaments and biological substances, accidental (unintentional), initial encounter; C45.9 Mesothelioma, unspecified; I10 Essential (primary) hypertension; E11.9 Type 2 diabetes mellitus without complications; Z66 Do not resuscitate; E11.649 Type 2 diabetes mellitus with hypoglycemia without coma; Z90.49 Acquired absence of other specified parts of digestive tract; Z85.118 Personal history of other malignant neoplasm of bronchus and lung; Z88.6 Allergy status to analgesic agent; Z88.0 Allergy status to penicillin; Z88.8 Allergy status to other drugs, medicaments and biological substances; Z82.49 Family history of ischemic heart disease and other diseases of the circulatory system; Z85.47 Personal history of malignant neoplasm of testis; Y92.89 Other specified places as the place of occurrence of the external cause